=== PATIENT | male | born 1960 ===

== ENCOUNTER 2017-07-03 18:07 | Emergency (ER) | payer OTHER ==
[2017-07-03 18:30] VITALS: RESP 18; TEMP 98.8; O2SAT 99
[2017-07-03] MEDS ORDERED: Sodium Chloride 0.9% 1,000 ML IV STA (19:17)
--- NOTE | 2017-07-03 19:56 | ED PDOC ---
HPI: Back Time Seen by Provider: 07/03/17 19:02 Chief Complaint (Nursing): Back Pain Chief Complaint (Provider): Back Pain History Per: Patient History/Exam Limitations: no limitations Onset/Duration Of Symptoms: Days (2 months) Current Symptoms Are (Timing): Still Present Quality Of Discomfort: "Pain" Additional Complaint(s): 57 year old male with a history of back pain presents to the ED complaining of intermittent mid-back spasms for the last 2 months. Patient reports the pain is radiating into his armpits, the right side of his chest and his legs. Denies nausea, vomiting, diarrhea and neck pain. No dyspnea, weakness, numbness, tingles. Old injury that has triggered the pains. PMD: none provided. Past Medical History Reviewed: Historical Data, Nursing Documentation, Vital Signs Vital Signs: Last Vital Signs Temp 98.8 F 07/03/17 18:27 Pulse 82 07/03/17 18:27 Resp 18 07/03/17 18:27 BP 129/81 07/03/17 18:27 Pulse Ox 99 07/03/17 18:27 - Medical History PMH: No Chronic Diseases - Surgical History Surgical History: No Surg Hx - Family History Family History: States: Unknown Family Hx - Living Arrangements Living Arrangements: With Family - Social History Alcohol: None Drugs: Denies - Home Medications Home Medications: Ambulatory Orders Medication Instructions Recorded Diazepam [Valium] 2 mg PO BID PRN #6 tab 07/03/17 Ibuprofen [Motrin] 600 mg PO TID 7 Days tab 07/03/17 - Allergies Allergies/Adverse Reactions: Allergies Allergy/AdvReac Type Severity Reaction Status Date / Time No Known Allergies Allergy Verified 11/15/14 20:59 Review of Systems ROS Statement: Except As Marked, All Systems Reviewed And Found Negative Musculoskeletal: Positive for: Back Pain (and spasms that radiat) Physical Exam - Reviewed Nursing Documentation Reviewed: Yes Vital Signs Reviewed: Yes - Physical Exam Appears: Positive for: Non-toxic, No Acute Distress Head Exam: Positive for: ATRAUMATIC, NORMOCEPHALIC Skin: Positive for: Normal Color, Warm, Dry Eye Exam: Positive for: EOMI, Normal appearance, PERRL Neck: Positive for: Normal, Painless ROM, Supple Cardiovascular/Chest: Positive for: Chest Non Tender. Negative for: Edema Respiratory: Positive for: Normal Breath Sounds. Negative for: Respiratory Distress Gastrointestinal/Abdominal: Positive for: Normal Exam, Soft. Negative for: Tenderness Back: Positive for: Other (mild tenderness to right upper back). Negative for: L CVA Tenderness, R CVA Tenderness Extremity: Positive for: Normal ROM, Other ((-) straight leg test). Negative for: Tenderness, Pedal Edema, Deformity Neurologic/Psych: Positive for: Alert, breaker machine tender II-XII, Oriented. Negative for: Motor/Sensory Deficits, Aphasia, Facial Droop - Laboratory Results Result Diagrams: 07/03/17 19:49 07/03/17 19:49 Interpretation Of Abn Labs: no acute - ECG ECG: Positive for: Interpreted By Me, Viewed By Me ECG Rhythm: Positive for: Normal QRS, Normal ST Segment, Sinus Rhythm O2 Sat by Pulse Oximetry: 99 (RA) Pulse Ox Interpretation: Normal - Radiology X-Ray: Interpreted by Me, Viewed By Me X-Ray Interpretation: No Acute Disease - Progress ED Course And Treament: 2132: Stable. Back spasms. Fu with pcp. AAOx3. Pain gone now. Medical Decision Making Medical Decision Making: Time: 19:16 Initial Plan: --EKG --CMP --Troponin I --CBC with differentials --Chest x ray --NS IV 1,000 mls/hr --Toradol 15 mg IVP --Valium 5 mg PO ---- Scribe Attestation: Documented by Ellie Chen, acting as a scribe for Juan Holley MD Provider Scribe Attestation: All medical record entries made by the Scribe were at my direction and personally dictated by me. I have reviewed the chart and agree that the record accurately reflects my personal performance of the history, physical exam, medical decision making, and the department course for this patient. I have also personally directed, reviewed, and agree with the discharge instructions and disposition. Disposition - Clinical Impression Clinical Impression: Back muscle spasm - Patient ED Disposition Is Patient to be Admitted: No Counseled Patient/Family Regarding: Studies Performed, Diagnosis, Need For Followup, Rx Given - Disposition Referrals: [facility] [Outside] - 07/05/17 Disposition: Routine/Home Disposition Time: 21:34 Condition: STABLE Additional Instructions: Return if not better in 3 days. Prescriptions: Diazepam [Valium] 2 mg PO BID PRN #6 tab PRN Reason: Muscle Spasm Ibuprofen [Motrin] 600 mg PO TID 7 Days tab Instructions: Muscle Spasms (DC) Forms: [facility] ([place]ish), [facility] ED School/Work Excuse
[2017-07-03 20:05] LABS: BASO % 0.4 % (0.0-2.0); EOS # 0.1 K/uL (0.0-0.7); EOS % 1.8 % (0.0-4.0); HEMOGLOBIN 14.1 g/dL (12.0-18.0); LYMPH # 2.3 K/uL (1.0-4.3); LYMPH % 41.4 % (20.0-40.0); MEAN CELL VOLUME 89.6 fl (80.0-94.0); MEAN CORPUSCULAR HEMOGLOBIN 30.5 pg (27.0-31.0); MEAN CORPUSCULAR HGB CONC 34.1 g/dL (33.0-37.0); MEAN PLATELET VOLUME 8.4 fl (7.2-11.7); MONO # 0.6 K/uL (0.0-0.8); MONO % 10.5 % (0.0-10.0); NEUT # 2.5 K/uL (1.8-7.0); NEUT % 45.9 % (50.0-75.0); NRBC % 0.1 % (0.0-0.0); RBC 4.61 Mil/uL (4.40-5.90); RED CELL DISTRIBUTION WIDTH 13.1 % (11.5-14.5); WHITE BLOOD COUNT 5.6 K/uL (4.8-10.8)
[2017-07-03 20:13] LABS: ALB/GLOB RATIO 1.2 (1.0-2.1); ALBUMIN 3.9 g/dL (3.5-5.0); ALT/SGPT 36 U/L (21-72); AST/SGOT 32 U/L (17-59); BLOOD UREA NITROGEN 21 mg/dl (9-20); CALCIUM 8.7 mg/dL (8.4-10.2); GFR AFRICAN-AMERICAN > 60; GFR NON-AFRICAN AMERICAN > 60
[2017-07-03 23:09] VITALS: BP 137/77; PULSE 74
--- NOTE | 2017-07-04 09:06 | RAD ---
PROCEDURE: CHEST RADIOGRAPH, 1 VIEW HISTORY: dyspnea COMPARISON: None available. FINDINGS: LUNGS: Left basilar atelectasis/scarring. PLEURA: No pneumothorax or pleural fluid seen. CARDIOVASCULAR: Normal. OSSEOUS STRUCTURES: Mild degenerative changes. VISUALIZED UPPER ABDOMEN: Normal. OTHER FINDINGS: None. IMPRESSION: Basilar atelectasis/scarring.
--- NOTE | 2017-07-04 12:19 | CARD ---
APPROVED REPORT EKG Measurement Heart [id number] <Conclusion> Normal sinus rhythm Normal ECG
== END 2017-07-03 22:15 | disposition home or self-care (01) ==
LOC: H.ER 18:07
DX: M62.830 Muscle spasm of back (principal)
CPT/HCPCS: 71045; 80053; 84484; 85025; 93005; 96361; 96374; 99283; J1885; J7030

== ENCOUNTER 2017-08-01 10:10 | Emergency (ER) | payer OTHER ==
[2017-08-01 10:26] VITALS: TEMP 97
[2017-08-01 10:27] VITALS: BMI 29.9
[2017-08-01] MEDS ORDERED: Naproxen 500 MG TAB PO STA (10:47)
--- NOTE | 2017-08-01 10:53 | ED PDOC ---
Lower Extremity Pain/Injury Time Seen by Provider: 08/01/17 10:51 Chief Complaint (Nursing): Lower Extremity Problem/Injury Chief Complaint (Provider): RIGHT KNEE PAIN History Per: Patient (57 Y/O MALE HERE WITH ONGOING RIGHT KNEE PAIN X 1 MONTH AFTER ABRUPTING STANDING UP. DENIES ANY FALLS/TRAUMA. NOTES SWELLING THAT IMPROVES IN MORNING. HAS TAKEN TYLENOL WITHOUT RELIEF.) Past Medical History Reviewed: Historical Data, Nursing Documentation, Vital Signs Vital Signs: Last Vital Signs Temp 97 F L 08/01/17 10:26 Pulse 87 08/01/17 10:26 Resp 16 08/01/17 10:35 BP 129/82 08/01/17 10:26 Pulse Ox 96 08/01/17 10:26 - Family History Family History: States: Unknown Family Hx - Home Medications Home Medications: Ambulatory Orders Medication Instructions Recorded Diazepam [Valium] 2 mg PO BID PRN #6 tab 07/03/17 Ibuprofen [Motrin] 600 mg PO TID 7 Days tab 07/03/17 Naproxen 375 mg PO Q8 PRN #15 tablet 08/01/17 - Allergies Allergies/Adverse Reactions: Allergies Allergy/AdvReac Type Severity Reaction Status Date / Time No Known Allergies Allergy Verified 11/15/14 20:59 Review of Systems ROS Statement: Except As Marked, All Systems Reviewed And Found Negative Musculoskeletal: Positive for: Other (KNEE PAIN) Physical Exam - Reviewed Nursing Documentation Reviewed: Yes Vital Signs Reviewed: Yes - Physical Exam Appears: Positive for: Well, Non-toxic, No Acute Distress Head Exam: Positive for: ATRAUMATIC, NORMAL INSPECTION, NORMOCEPHALIC Skin: Positive for: Normal Color, Warm, DRY Eye Exam: Positive for: EOMI, Normal appearance, PERRL ENT: Positive for: Normal ENT Inspection Neck: Positive for: Normal, Painless ROM Cardiovascular/Chest: Positive for: Regular Rate, Rhythm Respiratory: Positive for: CNT, Normal Breath Sounds Gastrointestinal/Abdominal: Positive for: Normal Exam, Soft Back: Positive for: Normal Inspection Extremity: Positive for: Normal ROM, Tenderness (RIGHT LATERAL DISTAL THIGH TENDER TO TOUCH. NO EFFUSION NOTED) Neurologic/Psych: Positive for: Alert, Oriented - ECG O2 Sat by Pulse Oximetry: 96 - Progress ED Course And Treament: NAPROXEN 500MG X 1 DOSE knee xry: nad crutches offered. Disposition - Clinical Impression Clinical Impression: Knee pain, Muscle strain - Patient ED Disposition Is Patient to be Admitted: No - Disposition Referrals: [facility] [place] [Outside] Disposition: Routine/Home Disposition Time: 11:27 Condition: FAIR Prescriptions: Naproxen 375 mg PO Q8 PRN #15 tablet PRN Reason: Pain, Moderate (4-7) Instructions: Muscle Strain, Knee Pain Forms: [facility] ED School/Work Excuse
[2017-08-01] MEDS ORDERED: Naproxen 500 MG TAB PO ONE (11:00)
--- NOTE | 2017-08-01 11:29 | RAD ---
PROCEDURE: Right Knee Radiographs. HISTORY: KNEE PAIN COMPARISON: None. FINDINGS: BONES: No acute fracture. JOINTS: Unremarkable. JOINT EFFUSION: Small suprapatellar joint effusion. OTHER FINDINGS: None. IMPRESSION: Small suprapatellar joint effusion without demonstrated fracture or dislocation.
[2017-08-01 11:35] VITALS: BP 141/65; PULSE 78; RESP 18; O2SAT 99
== END 2017-08-01 12:07 | disposition home or self-care (01) ==
LOC: H.ER 10:10
DX: M25.561 Pain in right knee (principal)